=== PATIENT | male | born 1980 | race African-American/Black ===

== ENCOUNTER 2017-03-28 02:51 | Emergency (ER) | payer OTHER ==
[2017-03-28 03:01] VITALS: TEMP 98
--- NOTE | 2017-03-28 03:03 | ED.PDOC ---
History of Present Illness - General Chief Complaint: Abdominal Pain Stated Complaint: Abdominal pain Time Seen by Provider: 03/28/17 02:58 Information Source: patient Exam Limitations: no limitations - History of Present Illness Initial Comments: Leticia Uriostegui 36 y/o female stated that she had on and off sharp upper abdominal pain for the last one week got worse today felt nauseated able to eat a little ,no diarrhea,no dysuria.Had gastric sleeve done last year in [place], [place]. Abdominal Pain Onset Location: RUQ, epigastric Pain Radiation: no radiation Quality: moderate, sharpness Timing/Duration: other - one week Improving Factors: nothing Worsening Factors: nothing Associated Symptoms: other - see hpi Review of Systems - Review of Systems Constitutional: States: no symptoms reported EENTM: States: no symptoms reported Respiratory: States: no symptoms reported Cardiology: States: no symptoms reported Gastrointestinal/Abdominal: States: see HPI Genitourinary: States: no symptoms reported Past Medical History (General) - Patient Medical History Hx Asthma: No Surgical History: other - gastric sleeve - Social History Hx Tobacco Use: No Hx Chewing Tobacco Use: No Hx Alcohol Use: No Hx Substance Use: No Feels Threatened In a Relationship: No Hx Physical Abuse: No Hx Emotional Abuse: No Hx Suspected Abuse: No - Female History Patient is a Female of Child Bearing Age (10 -59 yrs old): Yes Hx Last Menstrual Period: 03/18/17 - IUD Patient : No Family Medical History - Family History Father Living Status: Still Living Hx Family Hypertension: Yes - dad Hx Cardiac Disease: Yes - mom Hx Family Diabetes: Yes - dad Mother Hx Cardiac Disease: Yes Physical Exam - Physical Exam General Appearance: Alert, No apparent distress Eyes, Ears, Nose, Throat Exam: normal ENT inspection, pharynx normal Neck: full range of motion, supple, normal inspection Respiratory: lungs clear, normal breath sounds Cardiovascular/Chest: regular rate, rhythm, no murmur Peripheral Pulses: No deficit Gastrointestinal/Abdominal: soft, tenderness - epigastrium and RUQ;no peritoneal signs Extremity: normal inspection, no pedal edema, no calf tenderness Neurologic: abnormal gait Skin Exam: normal color, warm/dry Progress - Progress Progress: 03/28/17 03:10 Last Vital Signs Temp 98 F 03/28/17 02:54 Pulse 85 03/28/17 02:54 Resp 18 03/28/17 02:54 BP 115/73 03/28/17 02:54 Pulse Ox 100 03/28/17 02:54 - Results/Orders Results/Orders: Laboratory Tests 03/28/17 03/28/17 03/28/17 03:05 03:10 03:20 WBC 5.4 RBC 4.02 L Hgb 12.6 L Hct 37.4 L MCV 93.0 MCH 31.3 H MCHC 33.6 RDW 12.9 Plt Count 253 MPV 7.5 Absolute Neuts (auto) 3.30 Absolute Lymphs (auto) 1.70 Absolute Monos (auto) 0.30 Absolute Eos (auto) 0.10 Absolute Basos (auto) 0.00 Neutrophils % 61.3 Lymphocytes % 30.6 Monocytes % 5.4 Eosinophils % 2.0 Basophils % 0.7 Sodium 138 Potassium 3.5 L Chloride 108 Carbon Dioxide 24 Anion Gap 9.5 L BUN 11 Creatinine 0.48 L BUN/Creatinine Ratio 22.9 H Random Glucose 82 Serum Osmolality 274.2 L Calcium 8.6 Total Bilirubin 0.9 AST 10 ALT < 8 L Alkaline Phosphatase 38 L Serum Total Protein 6.7 Albumin 4.1 Globulin 2.6 Albumin/Globulin Ratio 1.6 Lipase 30 Urine Color Yellow Urine Appearance Clear Urine pH 5.5 Ur Specific [place] >= 1.030 Urine Protein Negative Urine Glucose (UA) Negative Urine Ketones Trace Urine Blood Negative Urine Nitrite Negative Urine Bilirubin Negative Urine Urobilinogen 1.0 Ur Leukocyte Esterase Negative Urine RBC 1-3 Urine WBC 1-3 Ur Epithelial Cells 1-3 Amorphous Sediment Trace Urine Bacteria 1+ Urine Mucus Large Departure - Departure Clinical Impression: Abdominal pain Qualifiers: Abdominal location: upper abdomen, unspecified Qualified Code(s): R10.10 - Upper abdominal pain, unspecified Time of Disposition: 04:34 Disposition: Discharge to Home or Self Care Condition: Good Departure Forms: ED Discharge - Pt. Copy, Patient Portal Self Enrollment Instructions: DI for Abdominal Pain-Adult Home Medications: Ambulatory Orders Trintellix 10 mg PO DAILY 03/28/17 Additional Instructions: Follow up with primary Md call for appointment as needed;Avoid greasy,spicy foods
[2017-03-28] MEDS ORDERED: SODIUM CHLORIDE 0.9% 1000ML 1,000 ML IVS ONE (03:07)
[2017-03-28] MEDS ORDERED: PROMETHAZINE HCL INJ 25 MG/ML VIAL IM ONE (03:12)
[2017-03-28] MEDS ORDERED: PANTOPRAZOLE SODIUM IV 40 MG VIAL IV ONE (03:12)
[2017-03-28] MEDS ORDERED: MORPHINE SULFATE INJ 10 MG/ML VIAL IV ONE (03:12)
[2017-03-28 04:21] VITALS: BP 91/50; O2SAT 98
== END 2017-03-28 04:38 | disposition home or self-care (01) ==
LOC: ER 02:51
DX: R10.10 Upper abdominal pain, unspecified (principal); Z98.84 Bariatric surgery status
CPT/HCPCS: 36415; 80053; 81001; 83690; 85025; J2270; J2550; J7030